=== PATIENT | male | born 1980 | race Caucasian/White ===

== ENCOUNTER 2024-09-28 20:00 | Outpatient (CLI) | payer BC ==
[2024-10-02 10:57] LABS: ACETONE, URINE NEGATIVE mg/dL (<5); ETHANOL, URINE NEGATIVE mg/dL (<5); ISOPROPANOL, URINE NEGATIVE mg/dL (<5); METHANOL, URINE NEGATIVE mg/dL (<5)
== END 2024-09-29 14:00 ==
LOC: M SLEEP 20:00
PROVIDERS: ATTEND Physician Assistant
DX: G47.30 Sleep apnea, unspecified (principal); R40.0 Somnolence; G47.10 Hypersomnia, unspecified